=== PATIENT | female | born 1960 | race Caucasian/White ===

== ENCOUNTER 2018-05-30 05:10 | Inpatient (IN) ==
[2018-05-30] MEDS ORDERED: LR 1,000 ML ONE ×2 (05:51→10:30)
[2018-05-30] MEDS ORDERED: XYLOCAINE-MPF 2% ONE ×2 (06:10→08:11)
[2018-05-30] MEDS ORDERED: ROBINUL ONE (06:10)
[2018-05-30] MEDS ORDERED: FENTANYL ONE (06:11)
[2018-05-30] MEDS ORDERED: DIPRIVAN 1% ONE ×3 (06:12→08:08)
[2018-05-30] MEDS ORDERED: ZOFRAN ONE ×2 (06:28→12:37)
--- NOTE | 2018-05-30 08:10 | Diag Imaging Result Doc PS360 ---
EXAM: CHEST-PORTABLE 05/30/2018 HISTORY: chest pain TECHNIQUE: AP portable at 0754 COMMENT: There is pneumomediastinum, soft tissue emphysema in the supraclavicular regions bilaterally. Pneumoperitoneum and a questionable left pneumothorax. The heart size and pulmonary vascularity are within normal limits. There is what appears to be a biopsy marker in the left breast. None of these findings were present at the time the previous study of 01/25/2018. There is a granuloma in the left upper lobe and a calcified node in the aorticopulmonary window. The heart size and pulmonary vascularity are within normal limits. IMPRESSION: Pneumoperitoneum, pneumomediastinum, and soft tissue emphysema. Questionable left pneumothorax. The findings were relayed to Junaid Gruber MD at 05/30/2018 8:08 AM. Electronically signed by Claude Ford 05/30/2018 8:08 AM
[2018-05-30] MEDS ORDERED: QUELICIN (DOSE) ONE (08:11)
--- NOTE | 2018-05-30 09:56 | Diag Imaging Result Doc PS360 ---
EXAM: CT ABDOMEN/PELVIS W/O CONTRAST 05/30/2018 HISTORY: POST COLONOSCOPY TECHNIQUE: This exam was performed using automated exposure control, adjustment of mA or kV according to patient size, and/or use of iterative reconstruction technique. COMMENT: There are no previous studies available for comparison. There is pneumomediastinum seen around the descending thoracic aorta and pericardium as well as around the esophagus. There is apparent dependent and platelike atelectasis present particularly in the left lower lobe. There is pneumoperitoneum. There is also interstitial gas present around the inferior vena cava and on post sides of the right hemidiaphragm. There is gas in the right perinephric space and in the anterior and posterior perinephric spaces. There is apparent subserosal gas around the ascending colon and in the retroperitoneal fat around the ascending colon. There is interstitial gas throughout the right side of the pelvis and in the perirectal space. There is gas present in the anterior adductor's of the right thigh and the anterior iliopsoas on the right. There is gas adjacent to the superficial femoral artery and femoral vein on the right. There is some gas on the left side around the gastroesophageal junction pancreatic tail and body and anterior to the left renal vein. There is diverticulosis present in the sigmoid colon. There is no evidence of small bowel obstruction. There are no definite fluid collections in the abdomen or pelvis. There are number of apparent cysts arising from the left kidney including at least two that are hyperdense. The spleen is not enlarged. There is no evidence of nephrolithiasis. There has been cholecystectomy. There are some degenerative disc changes in the lumbar spine. There is no evidence of acute bony abnormality. IMPRESSION: 1. Pneumoperitoneum, pneumomediastinum, extensive retroperitoneal and interstitial gas as described above. This extends into the right thigh. 2. Diverticulosis coli. No definite evidence of abscess. No evidence of bowel obstruction. 3. Bibasilar atelectasis particularly in the left lower lobe. Electronically signed by Claude Ford 05/30/2018 9:54 AM
[2018-05-30] MEDS ORDERED: LEVAQUIN 500 MG/D5W 500 MG/100 ML IVPB IV SCH (10:30)
[2018-05-30] MEDS ORDERED: FLAGYL 1000 MG/NS 1,000 MG/200 ML IVPB IV SCH (11:00)
[2018-05-30] MEDS ORDERED: D5 1/2 NS 1,000 ML ONE (12:36)
[2018-05-30] MEDS: MORPHINE ONE ×2 (12:40→13:33)
--- NOTE | 2018-05-30 13:02 | OPERATIVE NOTE ---
PROCEDURE DATE: 05/30/2018 PREOPERATIVE DIAGNOSES: 1. Chronic abdominal pain with some diarrhea. 2. History of cholecystectomy several months ago. PROCEDURE PERFORMED: Colonoscopy. POSTOPERATIVE DIAGNOSIS: Extensive diverticulosis with sigmoid stricture. DESCRIPTION OF PROCEDURE: The patient was brought to the GI lab after satisfactory IV sedation with propofol and anesthesia standby. Rectal exam revealed some prolapsing hemorrhoids. Colonoscope was introduced without difficulty. Rectum was otherwise normal. There was extensive diverticulosis in the sigmoid with evidence of previous diverticulitis with a stricture at about 30 cm. This was traversed. The remainder of the colon revealed scattered diverticula. Transverse, right colon, and cecum all visualized were within normal limits with no other intrinsic lesions being seen. The scope was gradually removed. The patient tolerated the procedure well and was transferred to recovery in stable condition. cc: Junaid Gruber MD
[2018-05-30] MEDS ORDERED: MORPHINE IV SCH (13:15)
[2018-05-30] MEDS ORDERED: TYLENOL PO PRN (13:24)
[2018-05-30] MEDS: D5 1/2 NS 1,000 ML IV SCH (14:40)
[2018-05-30 14:42] LABS: BASO# 0.02 X1000 (0.0-0.2); BASO% 0.1 % (0.0-0.8); EOS# 0.02 X1000 (0.0-0.7); EOS% 0.1 % (0.0-10.0); HEMATOCRIT 39.4 % (37.0-47.0); HEMOGLOBIN 13.2 g/dL (12.0-16.0); IMM GRAN# 0.03 X1000 (0.0-0.04); IMM GRAN% 0.2 % (0.0-0.5); LYMPH# 1.74 X1000 (1.2-3.4); LYMPH% 12.5 % (20.5-51.1); MCH 29.9 PG (27-31); MCHC 33.5 g/dL (33-37); MCV 89.1 FL (81-99); MONO# 0.64 X1000 (0.11-0.59); MONO% 4.6 % (1.7-9.3); MPV 11.2 FL (7.4-10.4); NEUT# 11.51 X1000 (1.4-6.5); NEUT% 82.5 % (42.2-75.2); PLT 286 X1000 (130-400); RBC 4.42 XMIL (4.2-5.4); RDW 14.7 % (11.5-14.5); WBC 13.96 X1000 (4.8-10.8)
[2018-05-30] MEDS ORDERED: PHENERGAN PO PRN (15:51)
[2018-05-30] MEDS ORDERED: NORCO-7.5 PO PRN ×2 (15:51→16:02)
[2018-05-30] MEDS: MORPHINE IV PRN ×2 (17:55→20:49)
[2018-05-30] MEDS: ZOFRAN IV PRN (17:56)
[2018-05-30] MEDS: FLAGYL 1000 MG/NS 1,000 MG/200 ML IVPB IV SCH (20:49)
[2018-05-31] MEDS: MORPHINE IV PRN ×4 (01:57→20:15)
[2018-05-31] MEDS: ZOFRAN IV PRN ×3 (01:57→20:16)
[2018-05-31] MEDS: D5 1/2 NS 1,000 ML IV SCH (03:00)
[2018-05-31] MEDS: FLAGYL 1000 MG/NS 1,000 MG/200 ML IVPB IV SCH ×3 (05:28→20:16)
[2018-05-31] MEDS: PRILOSEC PO SCH (05:28)
[2018-05-31 07:13] LABS: BASO# 0.01 X1000 (0.0-0.2); BASO% 0.1 % (0.0-0.8); EOS# 0.09 X1000 (0.0-0.7); HEMATOCRIT 37.4 % (37.0-47.0); HEMOGLOBIN 12.4 g/dL (12.0-16.0); IMM GRAN# 0.02 X1000 (0.0-0.04); IMM GRAN% 0.2 % (0.0-0.5); LYMPH# 2.05 X1000 (1.2-3.4); LYMPH% 22.4 % (20.5-51.1); MCH 29.7 PG (27-31); MCHC 33.2 g/dL (33-37); MCV 89.5 FL (81-99); MONO# 0.44 X1000 (0.11-0.59); MONO% 4.8 % (1.7-9.3); MPV 11.2 FL (7.4-10.4); NEUT# 6.55 X1000 (1.4-6.5); NEUT% 71.5 % (42.2-75.2); PLT 268 X1000 (130-400); RBC 4.18 XMIL (4.2-5.4); WBC 9.16 X1000 (4.8-10.8)
[2018-05-31 07:37] LABS: AGAP 8; BUN 4 mg/dL (8-22); CALCIUM 7.8 mg/dL (8.8-10.2); CHLORIDE 104 mmol/L (98-107); COSMO 275; CREATININE 0.6 mg/dL (0.5-0.9); ESTIMATED GFR > 60; GLUCOSE 110 mg/dL (70-104); POTASSIUM 3.2 mmol/L (3.5-5.1); SODIUM 139 mmol/L (136-145); TCO2 27 mmol/L (25-35)
--- NOTE | 2018-05-31 10:16 | Diag Imaging Result Doc PS360 ---
EXAM: FLAT/UPRIGHT ABD/1 VIEW CHEST 05/31/2018 HISTORY: S/P COLONOSCOPY TECHNIQUE: Flat and upright abdomen with PA chest COMMENT: Compared to the previous study of 05/30/2018 at 0754, there is more supraclavicular and cervical soft tissue emphysema. There is no evidence of pneumothorax. There is still some pneumonia mediastinum but this has apparently diminished slightly since the previous study. There is more free air under the diaphragms. There is still extensive retroperitoneal gas around the right colon and psoas muscle. There is is also seen in the pelvis. No evidence of bowel obstruction is present. IMPRESSION: Worsened soft tissue emphysema and free intra-abdominal gas. Electronically signed by Claude Ford 05/31/2018 10:14 AM
[2018-05-31] MEDS: LEVAQUIN 500 MG/D5W 500 MG/100 ML IVPB IV SCH (11:08)
[2018-06-01] MEDS: ZOFRAN IV PRN ×2 (02:50→10:41)
[2018-06-01] MEDS: MORPHINE IV PRN ×2 (02:51→09:11)
[2018-06-01] MEDS: FLAGYL 1000 MG/NS 1,000 MG/200 ML IVPB IV SCH ×3 (03:57→20:22)
[2018-06-01] MEDS: PRILOSEC PO SCH ×2 (06:35→10:49)
[2018-06-01 07:05] LABS: BASO# 0.02 X1000 (0.0-0.2); BASO% 0.3 % (0.0-0.8); EOS# 0.08 X1000 (0.0-0.7); EOS% 1.1 % (0.0-10.0); HEMATOCRIT 36.4 % (37.0-47.0); HEMOGLOBIN 12.1 g/dL (12.0-16.0); LYMPH# 0.91 X1000 (1.2-3.4); LYMPH% 12.6 % (20.5-51.1); MCHC 33.2 g/dL (33-37); MCV 90.1 FL (81-99); MONO# 0.51 X1000 (0.11-0.59); MONO% 7.1 % (1.7-9.3); MPV 10.9 FL (7.4-10.4); NEUT# 5.71 X1000 (1.4-6.5); NEUT% 78.9 % (42.2-75.2); PLT 267 X1000 (130-400); RBC 4.04 XMIL (4.2-5.4); RDW 14.9 % (11.5-14.5); WBC 7.23 X1000 (4.8-10.8)
--- NOTE | 2018-06-01 07:47 | Diag Imaging Result Doc PS360 ---
CHEST-2 VIEWS - 06/01/2018 INDICATION: free air COMPARISON: 05/31/2018 FINDINGS: There is no significant change in the peritoneal free air. There has been decrease in the soft tissue gas at the chest and base of the neck. No significant pneumothorax. Stable trace patchy infiltrates or atelectasis in the lung bases. IMPRESSION: Decrease in the soft tissue gas at the neck and chest. Electronically signed by Kavon Hernandez 06/01/2018 7:44 AM
--- NOTE | 2018-06-01 07:47 | Diag Imaging Result Doc PS360 ---
ABDOMEN FLAT/UPRIGHT - 06/01/2018 INDICATION: free air COMPARISON: 05/31/2018 FINDINGS: There is stable extensive intra and retroperitoneal free air. No bowel obstruction. IMPRESSION: No change from prior. Electronically signed by Kavon Hernandez 06/01/2018 7:45 AM
[2018-06-01 07:52] LABS: AGAP 9; BUN 1 mg/dL (8-22); CALCIUM 7.9 mg/dL (8.8-10.2); CHLORIDE 103 mmol/L (98-107); COSMO 275; CREATININE 0.6 mg/dL (0.5-0.9); ESTIMATED GFR > 60; GLUCOSE 123 mg/dL (70-104); POTASSIUM 2.6 mmol/L (3.5-5.1); SODIUM 139 mmol/L (136-145); TCO2 27 mmol/L (25-35)
[2018-06-01] MEDS: LEVAQUIN 500 MG/D5W 500 MG/100 ML IVPB IV SCH (10:41)
[2018-06-01] MEDS ORDERED: KLOR-CON PO ONE (11:23)
[2018-06-01] MEDS ORDERED: ZOFRAN ONE (11:59)
[2018-06-01] MEDS ORDERED: XYLOCAINE-MPF 2% ONE (11:59)
[2018-06-01] MEDS ORDERED: QUELICIN (DOSE) ONE (11:59)
[2018-06-01] MEDS ORDERED: DIPRIVAN 1% ONE (11:59)
[2018-06-01] MEDS ORDERED: ZEMURON ONE ×2 (11:59→12:01)
[2018-06-01] MEDS ORDERED: FENTANYL ONE (12:00)
[2018-06-01] MEDS ORDERED: ROBINUL ONE (12:33)
[2018-06-01] MEDS ORDERED: VERSED ONE (12:42)
[2018-06-01] MEDS ORDERED: DECADRON ONE (12:51)
[2018-06-01 13:13] LABS: URINE SOURCE CATH
[2018-06-01 13:15] LABS: BILIRUBIN URINE NEGATIVE (NEGATIVE); BLOOD URINE NEGATIVE (NEGATIVE); COLOR YELLOW; GLUCOSE URINE NEGATIVE (NEGATIVE); KETONE URINE 10 mg/dL (NEGATIVE); LEUKOCYTES URINE TRACE (NEGATIVE); NITRITE URINE NEGATIVE (NEGATIVE); PROTEIN URINE NEGATIVE (NEGATIVE); SP GRAVITY URINE 1.003; TURBIDITY URINE CLEAR (CLEAR); UROBILINOGEN URINE NORMAL (NORMAL)
[2018-06-01] MEDS ORDERED: OFIRMEV 1000 MG/ISOTONIC SOLN 1,000 MG/100 ML BOTTLE ONE (13:15)
[2018-06-01 13:17] LABS: UR EPITHELIAL CELLS <10 /HPF (<10); URINE BACTERIA NEGATIVE /HPF; URINE RBC <10 /HPF (<10); URINE WBC <10 /HPF (<10)
[2018-06-01] MEDS ORDERED: NEOSTIGMINE ONE (13:51)
[2018-06-01] MEDS ORDERED: D5 1/2 NS + KCL 20 MEQ 1,000 ML ONE (14:19)
[2018-06-01] MEDS: DILAUDID ONE ×3 (14:31→14:44)
[2018-06-01] MEDS ORDERED: NARCAN IV PRN (14:45)
[2018-06-01] MEDS ORDERED: DILAUDID-HP 30 MG in NS 27 ML IV PRN (14:45)
[2018-06-01] MEDS ORDERED: BENADRYL IV PRN (14:45)
[2018-06-01] MEDS: LR 1,000 ML IV SCH (16:21)
[2018-06-01] MEDS ORDERED: D5 1/2 NS + KCL 20 MEQ 1,000 ML IV SCH (17:00)
--- NOTE | 2018-06-01 17:46 | OPERATIVE NOTE ---
PROCEDURE DATE: 06/01/2018 PREOP: Acute abdomen. Recent colonoscopy on 05/30. PROCEDURE: Exploratory laparotomy, right colectomy with ileotransverse colostomy. DESCRIPTION OF PROCEDURE: The patient is brought to the operating room. After satisfactory induction of IV and endotracheal anesthesia athrombic TEDs, Fraser catheter and nasogastric tubes were placed. Her abdomen was broadly prepped and draped in the appropriate manner. A periumbilical midline incision was taken sharply down through skin and subcutaneous tissue. The fascia was incised in the midline. There was a small burst of air but without odor or purulence. There was no evidence of abscess or spillage of bowel contents in the abdomen. On exploration there was submucosal emphysema in the ascending colon. The left colon revealed significant diverticulosis but no perforation, no diverticulitis. Decision was made to perform a right hemicolectomy. For this reason, the right colon was mobilized along the white line of Toldt. The distal ileum and appendix were brought up. The distal ileum was divided with a ALLI stapler. Mesenteric attachments were taken down with the LigaSure instrument. The larger vasculature was taken down with Andria clamps and ligature with 0 silk suture. The right colon was mobilized just past the hepatic flexure. It was subsequently divided there with a ALLI again. A [id number] ALLI anastomosis was performed between the distal ileum and the proximal transverse colon. The anastomosis would admit the tip of 2 fingers. The staple line was [*bossed] with interrupted 2-0 silk and the mesenteric defect was closed with interrupted 2-0 silk. On completion, the wound was irrigated. Once again, the left colon was inspected and felt to be satisfactory without evidence of iatrogenic injury. The abdomen was further explored and after accounting for all laparotomy sponges, closure was initiated. The peritoneum was closed in a single running layer of #1 Vicryl. The fascia was closed with interrupted #1 Maxon. Subcutaneous was debrided with Betadine and closed with 3-0 Vicryl and the skin itself with stainless steel clips. Sterile dressings were applied. Fraser catheter, nasogastric tube and athrombic TEDs were left in place. She was awakened and extubated in the operating room and transferred to recovery. ESTIMATED BLOOD LOSS: Was around 150-200 mL. cc: Junaid Gruber MD [facility]
[2018-06-01] MEDS ORDERED: FLAGYL IV SCH (20:00)
[2018-06-01] MEDS ORDERED: [UNRECOGNIZED DRUG - OTHER] IV SCH (20:00)
[2018-06-01] MEDS: OFIRMEV 1000 MG/ISOTONIC SOLN 1,000 MG/100 ML BOTTLE IV SCH (20:18)
[2018-06-01] MEDS: PERIDEX MT SCH (20:19)
[2018-06-01] MEDS: PROTONIX IV SCH (20:19)
[2018-06-02] MEDS: OFIRMEV 1000 MG/ISOTONIC SOLN 1,000 MG/100 ML BOTTLE IV SCH ×2 (02:35→08:12)
[2018-06-02] MEDS: FLAGYL 1000 MG/NS 1,000 MG/200 ML IVPB IV SCH ×2 (04:07→13:13)
[2018-06-02 06:54] LABS: BASO# 0.01 X1000 (0.0-0.2); BASO% 0.1 % (0.0-0.8); HEMATOCRIT 36.1 % (37.0-47.0); HEMOGLOBIN 12.3 g/dL (12.0-16.0); IMM GRAN# 0.02 X1000 (0.0-0.04); IMM GRAN% 0.2 % (0.0-0.5); LYMPH# 1.17 X1000 (1.2-3.4); LYMPH% 13.6 % (20.5-51.1); MCH 29.9 PG (27-31); MCHC 34.1 g/dL (33-37); MCV 87.8 FL (81-99); MONO# 0.71 X1000 (0.11-0.59); MONO% 8.2 % (1.7-9.3); MPV 11.3 FL (7.4-10.4); NEUT# 6.71 X1000 (1.4-6.5); NEUT% 77.9 % (42.2-75.2); PLT 266 X1000 (130-400); RBC 4.11 XMIL (4.2-5.4); RDW 14.8 % (11.5-14.5); WBC 8.62 X1000 (4.8-10.8)
[2018-06-02 07:29] LABS: AGAP 6; BUN 2 mg/dL (8-22); CALCIUM 7.8 mg/dL (8.8-10.2); CHLORIDE 104 mmol/L (98-107); COSMO 274; CREATININE 0.5 mg/dL (0.5-0.9); ESTIMATED GFR > 60; GLUCOSE 134 mg/dL (70-104); POTASSIUM 3.1 mmol/L (3.5-5.1); SODIUM 138 mmol/L (136-145); TCO2 28 mmol/L (25-35)
--- NOTE | 2018-06-02 07:29 | Diag Imaging Result Doc PS360 ---
CHEST-1 VIEW - 06/02/2018 INDICATION: COMPARISON: 06/01/2018 FINDINGS: There is a new nasogastric tube with the tip in the stomach. There is an apparent resolution of the peritoneal free air under the diaphragms. There is decrease in the soft tissue gas at the upper chest and the base of the neck. There is some platelike atelectasis in the lung bases. Heart size remains normal. IMPRESSION: Resolution of the free air under the diaphragms. Improvement in the soft tissue gas at the base of the neck. Electronically signed by Kavon Hernandez 06/02/2018 7:27 AM
[2018-06-02] MEDS: PERIDEX MT SCH ×2 (08:12→21:15)
[2018-06-02] MEDS ORDERED: TYLENOL PO PRN ×2 (09:00→14:00)
[2018-06-02] MEDS: LEVAQUIN 500 MG/D5W 500 MG/100 ML IVPB IV SCH (11:59)
[2018-06-02] MEDS: ZOFRAN IV PRN (13:16)
[2018-06-02] MEDS: D5 1/2 NS + KCL 30 MEQ 1,000 ML IV SCH (13:32)
[2018-06-02] MEDS: LR 1,000 ML IV SCH (15:24)
[2018-06-02] MEDS: SODIUM CHLORIDE 0.9% INJ SCH ×2 (17:39→21:14)
[2018-06-02] MEDS: PHENERGAN IV PRN (17:44)
[2018-06-02] MEDS: PROTONIX IV SCH (21:14)
[2018-06-03] MEDS: ZOFRAN IV PRN (00:50)
[2018-06-03 07:24] LABS: BASO# 0.01 X1000 (0.0-0.2); BASO% 0.1 % (0.0-0.8); EOS# 0.17 X1000 (0.0-0.7); EOS% 1.5 % (0.0-10.0); HEMATOCRIT 37.7 % (37.0-47.0); HEMOGLOBIN 12.6 g/dL (12.0-16.0); LYMPH# 1.47 X1000 (1.2-3.4); LYMPH% 13.4 % (20.5-51.1); MCH 30.1 PG (27-31); MCHC 33.4 g/dL (33-37); MONO# 0.66 X1000 (0.11-0.59); MPV 11.8 FL (7.4-10.4); NEUT# 8.69 X1000 (1.4-6.5); PLT 264 X1000 (130-400); RBC 4.19 XMIL (4.2-5.4); RDW 15.3 % (11.5-14.5)
[2018-06-03 07:59] LABS: AGAP 9; BUN 2 mg/dL (8-22); CALCIUM 7.8 mg/dL (8.8-10.2); CHLORIDE 100 mmol/L (98-107); COSMO 275; CREATININE 0.5 mg/dL (0.5-0.9); ESTIMATED GFR > 60; GLUCOSE 126 mg/dL (70-104); POTASSIUM 3.2 mmol/L (3.5-5.1); SODIUM 139 mmol/L (136-145); TCO2 30 mmol/L (25-35)
[2018-06-03] MEDS: SODIUM CHLORIDE 0.9% INJ PRN ×2 (10:55→16:44)
[2018-06-03] MEDS: PHENERGAN IV PRN ×2 (10:55→16:43)
[2018-06-03] MEDS: PERIDEX MT SCH ×2 (10:59→21:46)
[2018-06-03] MEDS: LEVAQUIN 500 MG/D5W 500 MG/100 ML IVPB IV SCH (14:15)
[2018-06-03] MEDS: SODIUM CHLORIDE 0.9% INJ SCH ×2 (16:49→21:46)
[2018-06-03] MEDS: D5 1/2 NS + KCL 30 MEQ 1,000 ML IV SCH (17:52)
[2018-06-03] MEDS: LR 1,000 ML IV SCH (17:56)
[2018-06-03] MEDS: PROTONIX IV SCH (21:45)
[2018-06-04] MEDS: PHENERGAN IV PRN ×2 (00:55→07:00)
[2018-06-04] MEDS: D5 1/2 NS + KCL 30 MEQ 1,000 ML IV SCH ×3 (07:00→18:35)
--- NOTE | 2018-06-04 07:25 | Diag Imaging Result Doc PS360 ---
EXAM: CHEST-PORTABLE INDICATION: post op TECHNIQUE: One view COMPARISON: 06/02/2018 FINDINGS: The NG tube is in stable position. Mild subsegmental atelectasis at the lung bases is stable. The subcutaneous emphysema at the base of the neck continues to improve. No new consolidations are identified. Cardiac silhouette is stable. IMPRESSION: Continued improvement of subcutaneous emphysema at the base of the neck. Stable chest, otherwise. Electronically signed by Reid Coelho 06/04/2018 7:22 AM
[2018-06-04 07:32] LABS: BASO# 0.04 X1000 (0.0-0.2); BASO% 0.4 % (0.0-0.8); EOS# 0.32 X1000 (0.0-0.7); EOS% 3.3 % (0.0-10.0); HEMATOCRIT 37.2 % (37.0-47.0); HEMOGLOBIN 12.6 g/dL (12.0-16.0); IMM GRAN# 0.02 X1000 (0.0-0.04); IMM GRAN% 0.2 % (0.0-0.5); LYMPH# 2.01 X1000 (1.2-3.4); LYMPH% 20.6 % (20.5-51.1); MCH 29.8 PG (27-31); MCHC 33.9 g/dL (33-37); MCV 87.9 FL (81-99); MONO# 0.86 X1000 (0.11-0.59); MONO% 8.8 % (1.7-9.3); MPV 11.6 FL (7.4-10.4); NEUT# 6.53 X1000 (1.4-6.5); NEUT% 66.7 % (42.2-75.2); PLT 267 X1000 (130-400); RBC 4.23 XMIL (4.2-5.4); RDW 15.2 % (11.5-14.5); WBC 9.78 X1000 (4.8-10.8)
--- NOTE | 2018-06-04 07:35 | EKG Report ---
Test Performed on : 06/02/2018 06:36:48 AM Test Reason : orders Blood Pressure : / mmHG Vent. Rate : 075 BPM Atrial Rate : 075 BPM P-R Int : 196 ms QRS Dur : 088 ms QT Int : 390 ms P-R-T Axes : 067 023 061 degrees QTc Int : 435 ms Normal sinus rhythm. Normal ECG When compared with ECG of 28-JAN-2016 10:24, Sinus rhythm. has replaced Junctional rhythm. Confirmed by Juan MEJIAS, Channing ([id number]) on 06/04/2018 8:58:50 AM
[2018-06-04 07:52] LABS: AGAP 10; BUN 4 mg/dL (8-22); CHLORIDE 103 mmol/L (98-107); COSMO 277; CREATININE 0.5 mg/dL (0.5-0.9); ESTIMATED GFR > 60; GLUCOSE 118 mg/dL (70-104); POTASSIUM 3.4 mmol/L (3.5-5.1); SODIUM 140 mmol/L (136-145); TCO2 27 mmol/L (25-35)
[2018-06-04] MEDS: PERIDEX MT SCH ×2 (09:06→20:12)
[2018-06-04] MEDS: MORPHINE IV PRN ×3 (16:47→23:33)
[2018-06-04] MEDS: SODIUM CHLORIDE 0.9% INJ SCH (20:12)
[2018-06-04] MEDS: PROTONIX IV SCH (20:12)
[2018-06-05] MEDS: D5 1/2 NS + KCL 30 MEQ 1,000 ML IV SCH (09:20)
[2018-06-05] MEDS: PERIDEX MT SCH ×2 (09:20→22:14)
[2018-06-05] MEDS: MORPHINE IV PRN ×4 (09:38→22:40)
[2018-06-05] MEDS ORDERED: D5 1/2 NS + KCL 30 MEQ 1,000 ML IV SCH (10:15)
[2018-06-05] MEDS: SODIUM CHLORIDE 0.9% INJ SCH (22:14)
[2018-06-05] MEDS: PROTONIX IV SCH (22:14)
[2018-06-06] MEDS: MORPHINE IV PRN (03:14)
[2018-06-06 03:17] VITALS: BP 143/96
[2018-06-06] MEDS: PERIDEX MT SCH (09:07)
--- NOTE | 2018-06-25 22:12 | DISCHARGE SUMMARY ---
ADMISSION DATE: 06/01/2018 DISCHARGE DATE: 06/06/2018 DIAGNOSES: 1. Chronic abdominal pain. 2. Intermittent constipation and diarrhea. PROCEDURE PERFORMED: Colonoscopy with subsequent development of subcutaneous emphysema, a mucosal laceration in the ascending colon eventually requiring exploratory laparotomy and right colectomy with ileotransverse colostomy. HOSPITAL COURSE: The patient is a 57-year-old, white female with long history of heavy tobacco use. She has had previous cholecystectomy. She was having problems with intermittent complaints of lower abdominal pain with intermittent diarrhea and constipation. The colonoscopy was largely uneventful. There was a small mucosal flap laceration from the scope in the ascending colon. Postoperatively, the patient developed subcutaneous emphysema in her neck and mediastinum and retroperitoneum. There was only minimal evidence of free air. Her abdomen was relatively soft and she was not complaining of abdominal pain at all. Most of her pain was in the neck and the back. We watched her for a couple of days. She was taking liquids okay, passing gas, having bowel movements with no complaints of nausea or abdominal pain. There was no fever and no elevation in the white count. However, on the 3rd day she developed some low-grade fever and was having more pain. At this point, it was decided to explore the abdomen. There was subcutaneous subserosal emphysema in the ascending colon. There was no evidence of injury to the left side. A standard right colectomy was subsequently performed with anastomosis of the ileum to the transverse colon. Hospitalization subsequent to this was uneventful. Dietary advancements were well tolerated and she was subsequently allowed home on 06/06. The wound appears to be healing nicely. She will be seen in the office in 3 to 4 days' time. cc: Junaid Gruber MD
== END 2018-06-06 10:45 | disposition home or self-care (01) | DRG 909 ==
LOC: ENDO 05:10 → 4N 05:10
PROVIDERS: ADMIT Surgery; ATTEND Surgery
CPT/HCPCS: 71010; 71020; 71045; 71046; 74019; 74020; 74022; 74176; 80048; 81001; 85025; 87088; 88307; 88313; 93005; 93010; 94761; 94799; A9270; C9113; J0131; J0330; J1100; J1170; J1956; J2250; J2270; J2405; J2550; J3010; J3480; J7120; S0030; S0164

== ENCOUNTER 2018-06-18 13:55 | Inpatient (IN) ==
[2018-06-18 15:08] LABS: BASO# 0.04 X1000 (0.0-0.2); BASO% 0.4 % (0.0-0.8); EOS# 0.07 X1000 (0.0-0.7); EOS% 0.6 % (0.0-10.0); HEMATOCRIT 42.9 % (37.0-47.0); HEMOGLOBIN 14.9 g/dL (12.0-16.0); IMM GRAN# 0.02 X1000 (0.0-0.04); IMM GRAN% 0.2 % (0.0-0.5); LYMPH# 2.91 X1000 (1.2-3.4); LYMPH% 26.6 % (20.5-51.1); MCH 29.3 PG (27-31); MCHC 34.7 g/dL (33-37); MCV 84.3 FL (81-99); MONO# 1.05 X1000 (0.11-0.59); MONO% 9.6 % (1.7-9.3); MPV 11.8 FL (7.4-10.4); NEUT# 6.83 X1000 (1.4-6.5); NEUT% 62.6 % (42.2-75.2); PLT 447 X1000 (130-400); RBC 5.09 XMIL (4.2-5.4); RDW 14.3 % (11.5-14.5); WBC 10.92 X1000 (4.8-10.8)
[2018-06-18 15:13] LABS: URINE SOURCE CLEAN CATCH
[2018-06-18 15:16] LABS: INR 0.97; PROTIME 13.6 Seconds (11.0-16.0)
[2018-06-18 15:17] LABS: PTT 26.4 Seconds (22.3-41.8)
[2018-06-18 15:18] LABS: BILIRUBIN URINE SMALL (NEGATIVE); BLOOD URINE NEGATIVE (NEGATIVE); COLOR ORANGE; GLUCOSE URINE TRACE mg/dL (NEGATIVE); KETONE URINE NEGATIVE (NEGATIVE); LEUKOCYTES URINE SMALL (NEGATIVE); NITRITE URINE NEGATIVE (NEGATIVE); PROTEIN URINE 100 mg/dL (NEGATIVE); SP GRAVITY URINE 1.028; TURBIDITY URINE TURBID (CLEAR); UROBILINOGEN URINE 2 mg/dL (NORMAL)
--- NOTE | 2018-06-18 15:19 | Diag Imaging Result Doc PS360 ---
EXAM: FLAT/UPRIGHT ABD/1 VIEW CHEST HISTORY: abdominal pain post op colon resection TECHNIQUE: Flat and upright with chest, three views COMPARISON: 06/04/2018 FINDINGS: The lungs are well expanded and clear except for granuloma in the mid left lung. No cardiomegaly. No free air beneath the diaphragm. The gallbladder has been removed. There are sutures in the right lower quadrant. Skin doris overlie the mid abdomen. No bowel obstruction. No organomegaly. Mild scoliosis with mild degenerative spine changes. IMPRESSION: No acute abnormality Electronically signed by Cong Salazar 06/18/2018 3:17 PM
[2018-06-18 15:23] LABS: UR EPITHELIAL CELLS >10 /HPF (<10); URINE BACTERIA 4+ /HPF; URINE CASTS NONE SEEN; URINE CRYSTALS NONE SEEN; URINE SMALL ROUND CELLS NONE SEEN; URINE WBC TNTC /HPF (<10); URINE YEAST NONE SEEN
[2018-06-18 15:39] LABS: ALB/GLOB RATIO 1.3; ALBUMIN 4.1 g/dL (3.5-5.0); CALCIUM 9.5 mg/dL (8.8-10.2); CREATININE 1.5 mg/dL (0.5-0.9); POTASSIUM 3.2 mmol/L (3.5-5.1); TOTAL BILIRUBIN 0.8 mg/dL (0.20-1.00); TOTAL PROTEIN 7.2 g/dL (6.3-8.3)
[2018-06-18] MEDS ORDERED: SODIUM CHLORIDE 0.9% INJ ONE (15:55)
[2018-06-18] MEDS ORDERED: PHENERGAN IV ONE (15:55)
--- NOTE | 2018-06-18 15:59 | PROVIDER DOCUMENTATION ---
This chart was entered by Franny Swann Scribe, acting as scribe for Sue Vazquez MD. HPI-Abdominal Pain/GI Problem - General Chief Complaint: Post Op Complaint Stated Complaint: POST OP COMPLAINT Time Seen by Provider: 06/18/18 14:08 Source: patient, family (sister) Allergies/Adverse Reactions: Patient Allergies Allergy/AdvReac Type Severity Reaction Status Date / Time Penicillins Allergy Severe ANAPHYLAXIS Verified 05/30/18 14:24 tramadol Allergy Severe RASH Verified 05/30/18 14:24 ketorolac tromethamine * AdvReac Mild ITCHING Verified 05/30/18 14:24 [From Toradol] Home Medications: Home Medication List Medication Instructions Recorded Confirmed Last Taken Type Promethazine [Phenergan] 25 mg PO Q6H PRN PRN 03/19/16 06/18/18 Unknown History Omeprazole [Prilosec] 40 mg PO DAILY 05/29/18 06/18/18 05/28/18 History Hydrocodone/Acetaminophen 1 tab PO Q8H PRN PRN 06/18/18 06/18/18 Unknown History [Hydrocodone-Acetamin 10-325 mg] - History of Present Illness-ABD Nature of Presenting Problems: Patient is a 57 year female who presents to the ED with generalized abdominal pain, nausea and vomiting that started 1 week ago. Patient states symptoms worsened yesterday. Patient's sister states patient had a colonoscopy by Dr. Gruber on 05/30/18 and her bowel ruptured and she had a resection. Denies fever. Abdominal Pain Onset Location: reports: generalized abdomen Pain Radiation: reports: no radiation Quality of Pain: reports: aching Severity in ED: reports: moderate Onset/Duration: reports: 1 week ago Timing: reports: still present, getting worse Activities at Onset: reports: light activity Modifying Factors: improves with: nothing Associated Symptoms: reports: nausea, vomiting Bruising or Bleeding Gums?: No Similar Symptoms Previously?: Yes Recently seen or treated by another doctor?: Yes Review of Systems - Adult - REVIEW OF SYSTEMS - ADULT Constitutional: reports: no symptoms reported. denies: chills, fever, fatique Eyes: reports: no symptoms reported Ears, Nose, Mouth & Throat: reports: no symptoms reported Cardiovascular: reports: no symptoms reported Respiratory: reports: no symptoms reported Gastrointestinal: reports: see HPI, abdominal pain (generalized), nausea, vo miting Genitourinary: reports: no symptoms reported Musculoskeletal: reports: no symptoms reported. denies: back pain, muscle aches, neck pain Integumentary: reports: no symptoms reported Neurological: reports: no symptoms reported Psychiatric: reports: no symptoms reported Endocrine: reports: no symptoms reported Hematologic/Lymphatic: reports: no symptoms reported Allergic/Immunologic: reports: no symptoms reported All Other Systems: Reviewed and Negative Past History - Adult - PAST MEDICAL HISTORY-ADULT Review of Records: reports: Nursing Assessment Review, Medications Reviewed, Social history reviewed & non-contributory. Major Childhood Illnesses: reports: denies history Cardiovascular: reports: HTN Respiratory: reports: denies history Gastrointestinal: reports: GERD Obstetrical/Gynecological: reports: denies history Genitourinary: reports: denies history Musculoskeletal: reports: denies history Neurological: reports: denies history Psychiatric: reports: denies history Endocrine/Immune: reports: denies history Other Conditions: reports: denies history Additional History: Dental caries - PRIOR SURGERIES/PROCEDURES Surgical/Procedure History: reports: cholecystectomy, hysterectomy - IMMUNIZATION STATUS Childhood Immunizations: See Nurse Assessment Flu Vaccine: See Nurse Assessment - FAMILY HISTORY Family History: reviewed, not pertinent - SOCIAL HISTORY Smoking: cigarettes, less than 1 pack/day Provider spent 3-5 mins advising pt. on dangers of tobacco.: Discussed manners to quit use, and f/u contacts for add'l counseling. Substance Use: denies Physical Exam-General - PHYSICAL EXAM-ADULT Initial Vital Signs Reviewed: Yes - CONSTITUTIONAL General Appearance: alert, mild distress. negative: lethargic, slow to respond - RESPIRATORY Respiratory: chest non-tender, lungs clear, normal breath sounds. negative: crackles, rhonchi - CARDIOVASCULAR Cardiovascular: normal peripheral pulses, regular rate, rhythm. negative: tachycardia, systolic murmur - GASTROINTESTINAL (ABDOMEN) Abdominal Exam: soft, tenderness (diffuse), other (well healing midline abdominal scar with doris present.). negative: guarding, rebound - SKIN Integumentary: normal color, normal turgor, warm/dry. negative: cyanosis, ecchymosis, erythema, jaundice - NEUROLOGIC Neurologic: grossly normal. negative: aphasia, facial droop - PSYCHIATRIC Psych/Mental Status: normal mood/affect, oriented x 3. negative: anxious Progress - PLAN OF CARE/RESULTS Progress/Plan/Lab Results: Vital Signs - 8 hr 06/18/18 14:01 Temperature 97.5 F L Pulse Rate 101 H Respiratory Rate 22 O2 Sat by Pulse Oximetry 99 Orders Category Date Time Status Cardiac Monitoring DIRECTED Care 06/18/18 14:07 Active IV Insertion ORDERED Care 06/18/18 14:07 Active Notify MD of + Sepsis Screen NOW Care 06/18/18 14:07 Active Notify Physician As Ordered Care 06/18/18 14:07 Active CHEST-1 VIEW [RAD] Stat Exams 06/18/18 14:07 Ordered FLAT/UPRIGHT ABD/1 VIEW CHEST [RAD] Stat Exams 06/18/18 14:14 Ordered BLOOD CULTURE [BLDCUL] Stat Lab 06/18/18 14:07 Uncollected CBC WITH DIFF [HEME] Stat Lab 06/18/18 14:07 Uncollected CK PROFILE [SP CHEM] Stat Lab 06/18/18 14:07 Uncollected COMPREHENSIVE METABOLIC PANEL [CHEM] Stat Lab 06/18/18 14:07 Uncollected LACTATE, PLASMA [CHEM] Q3H Lab 06/18/18 14:15 Uncollected LACTATE, PLASMA [CHEM] Q3H Lab 06/18/18 17:15 Uncollected LACTATE, PLASMA [CHEM] Q3H Lab 06/18/18 20:15 Uncollected PROTIME WITH INR [COAG] Stat Lab 06/18/18 14:07 Uncollected PTT [COAG] Stat Lab 06/18/18 14:07 Uncollected TROPONIN T Stat Lab 06/18/18 14:07 Uncollected URINALYSIS W/POSS RFLX CULT [URINALYSIS] Stat Lab 06/18/18 14:07 Uncollected Oxygen Device Stat Oth 06/18/18 14:07 Active 1546 - Dr. Gruber came down to the ED and stated to Dr. Vazquez he is taking over the patient's care. Result Diagrams: 06/18/18 14:46 06/18/18 14:46 - XRAY 1 XRAY Study: Abdomen Impression: See EMR Report ( EXAM: FLAT/UPRIGHT ABD/1 VIEW CHEST HISTORY: abdominal pain post op colon resection TECHNIQUE: Flat and upright with chest, three views COMPARISON: 06/04/2018 FINDINGS: The lungs are well expanded and clear except for granuloma in the mid left lung. No cardiomegaly. No free air beneath the diaphragm. The gallbladder has been removed. There are sutures in the right lower quadrant. Skin doris overlie the mid abdomen. No bowel obstruction. No organomegaly. Mild scoliosis with mild degenerative spine changes. IMPRESSION: No acute abnormality Electronically signed by Cong Salazar 06/18/2018 3:17 PM 06/18/18 1517 Interpreting Physician: Cong Salazar MD Dictated Date/Time: 06/18/18 1516 cc: Sue Vazquez MD; Channing Martinez MD) - CONSULTS/PCP/HOSPITALIST Notification #1 *Consult/PCP/Hospitalist*: Dr. Gruber Time Discussed: 14:45 Reason/Comments: Dr. Gruber is taking over the case Consult Disposition: Will see in ED, Admit Departure - Departure Date of Disposition Decision: 06/18/18 Time of Disposition Decision: 15:54 DIAGNOSIS: Postoperative generalized abdominal pain Disposition: ADMITTED INPATIENT 09 Certified Medical Emergency: Emergent Condition: Stable Referrals and Follow-Ups: Channing Martinez MD [Primary Care Provider] - - Critical Care Note This patient required my direct & personal management of CC.: No Attestation - Physician/ LESLIE Attestation The physician spent face to face time with patient:: Yes Advanced Practice Provider documentation review:: Supervising physician onsite and consulted in the evaluation and care of this patient. The physician did have a face to face encounter with the patient. This chart was documented by the indicated scribe, (Franny Swann Scribe) and accurately reflects the services I performed and decisions made by me, Sue Vazquez MD, as attested by the provider's signature.
[2018-06-18] MEDS ORDERED: D5 1/2 NS + KCL 30 MEQ 1,000 ML IV ONE (16:38)
[2018-06-18] MEDS: SEPTRA DS PO SCH (20:10)
[2018-06-18] MEDS ORDERED: NORCO-10 PO PRN (20:27)
[2018-06-18] MEDS: NORCO-7.5 PO PRN (21:37)
[2018-06-19] MEDS: NORCO-7.5 PO PRN ×3 (06:03→21:02)
[2018-06-19 06:07] LABS: BASO# 0.02 X1000 (0.0-0.2); BASO% 0.2 % (0.0-0.8); EOS# 0.17 X1000 (0.0-0.7); EOS% 2.1 % (0.0-10.0); HEMATOCRIT 38.3 % (37.0-47.0); LYMPH# 3.11 X1000 (1.2-3.4); LYMPH% 38.4 % (20.5-51.1); MCH 29.3 PG (27-31); MCHC 33.9 g/dL (33-37); MCV 86.5 FL (81-99); MONO# 0.71 X1000 (0.11-0.59); MONO% 8.8 % (1.7-9.3); MPV 11.6 FL (7.4-10.4); NEUT# 4.08 X1000 (1.4-6.5); NEUT% 50.5 % (42.2-75.2); PLT 325 X1000 (130-400); RBC 4.43 XMIL (4.2-5.4); WBC 8.09 X1000 (4.8-10.8)
[2018-06-19 06:28] LABS: CALCIUM 8.6 mg/dL (8.8-10.2); CREATININE 1.4 mg/dL (0.5-0.9); POTASSIUM 2.8 mmol/L (3.5-5.1)
[2018-06-19] MEDS: D5 1/2 NS + KCL 30 MEQ 1,000 ML IV SCH ×2 (08:30→21:02)
[2018-06-19] MEDS: SEPTRA DS PO SCH ×2 (10:00→21:02)
[2018-06-19] MEDS: ZOFRAN IV PRN ×3 (10:00→21:02)
[2018-06-19] MEDS: PRILOSEC PO SCH (10:07)
[2018-06-20] MEDS: NORCO-7.5 PO PRN ×3 (04:48→21:01)
[2018-06-20] MEDS: PHENERGAN PO PRN ×3 (04:49→21:05)
[2018-06-20] MEDS: D5 1/2 NS + KCL 30 MEQ 1,000 ML IV SCH ×3 (06:13→21:01)
[2018-06-20 07:02] LABS: CALCIUM 8.3 mg/dL (8.8-10.2); CREATININE 1.2 mg/dL (0.5-0.9); POTASSIUM 3.5 mmol/L (3.5-5.1)
[2018-06-20] MEDS: PRILOSEC PO SCH (08:06)
[2018-06-20] MEDS: SEPTRA DS PO SCH ×2 (09:04→21:01)
[2018-06-21] MEDS: NORCO-7.5 PO PRN ×3 (06:24→20:33)
[2018-06-21] MEDS: PRILOSEC PO SCH (06:25)
[2018-06-21] MEDS: D5 1/2 NS + KCL 30 MEQ 1,000 ML IV SCH ×2 (09:24→09:25)
[2018-06-21] MEDS: SEPTRA DS PO SCH ×2 (09:24→20:32)
[2018-06-21] MEDS: PHENERGAN PO PRN (13:13)
[2018-06-22] MEDS: PHENERGAN PO PRN (00:09)
[2018-06-22] MEDS: D5 1/2 NS + KCL 30 MEQ 1,000 ML IV SCH ×3 (01:35→08:10)
[2018-06-22] MEDS: PRILOSEC PO SCH (08:16)
[2018-06-22] MEDS: SEPTRA DS PO SCH (08:59)
[2018-06-22] MEDS: NORCO-7.5 PO PRN (08:59)
[2018-06-22 11:41] VITALS: BP 114/74
--- NOTE | 2018-07-04 06:52 | DISCHARGE SUMMARY ---
ADMISSION DATE: 06/20/2018 DISCHARGE DATE: 06/22/2018 DIAGNOSIS: Nausea and dehydration with history of recent right colectomy. HISTORY: The patient is a 57-year-old, white female who had recently undergone a right hemicolectomy who at the time of discharge was doing well having spontaneous bowel movements and tolerating regular diet. Since discharge, she has developed some nausea, abdominal pain and dehydration. She was admitted and given IV fluids. She was started on clear liquids. Her symptoms did resolve, and she did improve significantly with IV hydration. By 06/22, she was back eating solid food and having spontaneous bowel movements and feeling much better. She was allowed home. No blood transfusions were required. Her renal function remains relatively normal. She will be seen in the office in 1 week's time. Her wounds are well healed. cc: Junaid Gruber MD
== END 2018-06-22 14:20 | disposition home or self-care (01) | DRG 641 ==
LOC: 4N 13:55 → ED 13:55
PROVIDERS: ADMIT Surgery; ATTEND Surgery
CPT/HCPCS: 74022; 80048; 80053; 81001; 82550; 83605; 84484; 85025; 85610; 85730; 87040; 87077; 87088; 87186; 87449; 96365; 96375; 99285; A9270; J2405; J2550